=== PATIENT | male | born 1990 | race American Indian/Alaskan Native ===

== ENCOUNTER 2017-12-07 19:51 | Emergency (ER) | payer SELFPAY ==
[2017-12-07] MEDS ORDERED: TYLENOL PO ONE (19:55)
[2017-12-07] MEDS ORDERED: TYLENOL ONE (19:59)
[2017-12-07 20:05] VITALS: BP 116/74
--- NOTE | 2017-12-07 21:16 | Emergency Department Report ---
ED ENT HPI - General Chief complaint: Sore Throat Stated complaint: THROAT PAIN Time Seen by Provider: 12/07/17 21:01 Source: patient Mode of arrival: Ambulatory Limitations: No Limitations - History of Present Illness Initial comments: 27-year-old -[place] male presents to the emergency room for sore throat 1 week. Patient reports that he has sores on his tonsils. Fever 2 days. He reports that he was placed on azithromycin in a hospital in [place] on Tuesday. He reports that the antibiotics did not work. Patient denies any past medical history reports he takes no medications on a daily basis and has no known drug allergies. MD complaint: sore throat, difficulty swallowing -: week(s) (1) Location: throat Severity scale (0 -10): 8 Quality: burning, other (sore) Consistency: constant Improves with: none Worsens with: swallowing Associated Symptoms: sore throat - Related Data Previous Rx's Medication Instructions Recorded Last Taken Type Ibuprofen [Motrin 600 MG tab] 600 mg PO Q8H PRN #30 tablet 12/07/17 Unknown Rx Allergies Allergy/AdvReac Type Severity Reaction Status Date / Time No Known Allergies Allergy Verified 12/07/17 20:12 ED Dental HPI - General Chief complaint: Sore Throat Stated complaint: THROAT PAIN Time Seen by Provider: 12/07/17 21:01 Source: patient Mode of arrival: Ambulatory Limitations: No Limitations - Related Data Previous Rx's Medication Instructions Recorded Last Taken Type Ibuprofen [Motrin 600 MG tab] 600 mg PO Q8H PRN #30 tablet 12/07/17 Unknown Rx Allergies Allergy/AdvReac Type Severity Reaction Status Date / Time No Known Allergies Allergy Verified 12/07/17 20:12 ED Review of Systems ROS: Stated complaint: THROAT PAIN Other details as noted in HPI Constitutional: fever ENT: throat pain ED Past Medical Hx - Past Medical History Previous Medical History?: No - Surgical History Past Surgical History?: No - Social History Smoking Status: Current Every Day Smoker Substance Use Type: None - Medications Home Medications: Home Medications Medication Instructions Recorded Confirmed Last Taken Type Ibuprofen [Motrin 600 MG tab] 600 mg PO Q8H PRN #30 tablet 12/07/17 Unknown Rx ED Physical Exam - General Limitations: No Limitations General appearance: alert, in no apparent distress - Head Head exam: Present: atraumatic, normocephalic - Eye Eye exam: Present: EOMI - Expanded ENT Exam Expanded Throat exam: Positive: tonsillar erythema, tonsillomegaly, tonsillar exudate ( sores are white) - Neck Neck exam: Present: normal inspection, full ROM. Absent: tenderness, lymphadenopathy - Respiratory Respiratory exam: Present: normal lung sounds bilaterally. Absent: respiratory distress - Cardiovascular Cardiovascular Exam: Present: regular rate, normal rhythm. Absent: systolic murmur, diastolic murmur, rubs, gallop - Neurological Exam Neurological exam: Present: alert, oriented X3 - Psychiatric Psychiatric exam: Present: normal affect, normal mood - Skin Skin exam: Present: warm, dry, intact, normal color. Absent: rash ED Course Vital Signs 12/07/17 12/07/17 19:56 19:58 Temperature 101.8 F H 101.8 F H Pulse Rate 108 H Respiratory 22 22 Rate Blood Pressure 116/74 116/74 O2 Sat by Pulse 98 Oximetry ED Medical Decision Making - Medical Decision Making Patient has been evaluated by this provider in fast track. Patient was given acetaminophen 650 mg in triage. CBCs BNP rapid strep, Monospot. Bicillin LA 2.1 million units IM now. Prednisone 30 mg by mouth now Discharge patient on ibuprofen 600 mg every 8 hours as needed for pain. Referral to infectious disease. Critical care attestation.: If time is entered above; I have spent that time in minutes in the direct care of this critically ill patient, excluding procedure time. ED Disposition Clinical Impression: Sore throat Disposition: DC-01 TO HOME OR SELFCARE Is pt being admited?: No Does the pt Need Aspirin: No Condition: Stable Instructions: Pharyngitis (ED) Additional Instructions: You take pain medication as prescribed. I recommend she follow up with infectious disease provider. I have listed Dr. Jensen inflammation below. Prescriptions: Ibuprofen [Motrin 600 MG tab] 600 mg PO Q8H PRN #30 tablet PRN Reason: Pain Referrals: LAURA JENSEN MD [Staff Physician] - 3-5 Days Forms: Work/School Release Form(ED)
[2017-12-07 21:33] LABS: Mean Corpuscular HGB Conc 37 % (32-34); Mean Corpuscular Hemoglobin 30 pg (28-32); Mean Corpuscular Volume 80 fl (84-94); Platelet Count 341 K/mm3 (140-440); Red Blood Count 5.14 M/mm3 (3.65-5.03); Red Cell Distribution Width 14.3 % (13.2-15.2)
[2017-12-07 21:46] LABS: BUN/Creatinine Ratio 17; Blood Urea Nitrogen 12 mg/dL (9-20); Calcium 9.2 mg/dL (8.4-10.2); Hemolysis Index 26
[2017-12-07 21:50] LABS: Hematocrit 41.3 % (35.5-45.6); Hemoglobin 15.3 gm/dl (11.8-15.2)
[2017-12-07] MEDS ORDERED: DELTASONE PO ONE (22:07)
[2017-12-07] MEDS ORDERED: BICILLIN L-A IM ONE (22:07)
[2017-12-07 22:27] LABS: Basophils % (Manual) 0 % (0.0-1.8); Total Cells Counted 100
[2017-12-07 22:28] LABS: Platelet Estimate Consistent w Auto; RBC Morphology Normal
== END 2017-12-07 22:15 | disposition home or self-care (01) ==
LOC: ED 19:51
DX: R07.0 Pain in throat (principal); R50.9 Fever, unspecified; R13.10 Dysphagia, unspecified; F17.200 Nicotine dependence, unspecified, uncomplicated
CPT/HCPCS: 36415; 80048; 85007; 85025; 86308; 87116; 87430; 96372; 99283; J0561; J7512

== ENCOUNTER 2021-07-31 16:44 | Emergency (ER) | payer SELFPAY ==
--- NOTE | 2021-08-03 14:11 | Electrocardiograph Report ---
[facility] Test Date: 2021-08-01 Test Time: 12:55:36 Pat Name: ANDI ALCANTARA Department: Room: Gender: M Pharmacy Picking Tech: NAOMI : 1990 Requested By: RASHID ASCENCIO Order Number: [id number] Reading MD: Zully Boudreaux Measurements Intervals [place] Rate: 97 P: 77 MO: 168 QRS: 74 QRSD: 74 T: -18 QT: 325 QTc: 413 Interpretive Statements Sinus rhythm Normal ECG No previous ECG available for comparison Electronically Signed On 08-03-2021 14:10:48 EDT by Zully Boudreaux
== END 2021-07-31 17:35 | disposition left against medical advice (07) ==
LOC: ED 16:44
DX: R07.89 Other chest pain (principal); Z53.21 Procedure and treatment not carried out due to patient leaving prior to being seen by health care provider

== ENCOUNTER 2021-08-01 11:44 | Emergency (ER) | payer SELFPAY ==
[2021-08-01 12:39] VITALS: BP 130/79
== END 2021-08-01 14:00 | disposition left against medical advice (07) ==
LOC: ED 11:44
DX: R07.9 Chest pain, unspecified (principal); Z53.21 Procedure and treatment not carried out due to patient leaving prior to being seen by health care provider
CPT/HCPCS: 93005